=== PATIENT | female | born 2000 | race African-American/Black ===

== ENCOUNTER 2021-01-30 01:46 | Emergency (ER) | payer BC, OTHER ==
[2021-01-30 02:07] VITALS: TEMP 98.2; BMI 25.6
[2021-01-30] MEDS ORDERED: diphenhydrAMINE HCL 50 MG CAPSULE PO ONE (02:49)
[2021-01-30] MEDS ORDERED: LIDOCAINE 5% TOPICAL PATCH TP ONE (02:55)
[2021-01-30] MEDS ORDERED: IBUPROFEN 600 MG TABLET (FP) PO ONE ×2 (03:10→03:18)
[2021-01-30] MEDS ORDERED: diphenhydrAMINE HCL 25 MG CAPSULE (FP) PO ONE (03:17)
[2021-01-30] MEDS ORDERED: LIDOCAINE 5% TOPICAL PATCH ONE (03:18)
[2021-01-30 05:31] VITALS: BP 126/73; PULSE 86
[2021-01-30] MEDS ORDERED: LIDOCAINE PATCH REMOVAL MC SCH (22:00)
== END 2021-01-30 05:31 | disposition home or self-care (01) ==
LOC: JER 01:46
DX: R21 Rash and other nonspecific skin eruption (principal); R07.9 Chest pain, unspecified
CPT/HCPCS: 71046-TC-FY; 93005; 93010; 99284-25

== ENCOUNTER 2022-01-19 12:49 | Emergency (ER) | payer BC ==
[2022-01-19 13:05] VITALS: BP 99/68; PULSE 101; TEMP 98; BMI 24.7
[2022-01-19] MEDS ORDERED: IBUPROFEN 600 MG TABLET (FP) PO ONE ×2 (14:55→15:04)
== END 2022-01-19 16:03 | disposition home or self-care (01) ==
LOC: JERFT 12:49
DX: S92.354A Nondisplaced fracture of fifth metatarsal bone, right foot, initial encounter for closed fracture (principal)
CPT/HCPCS: 73630-TC-RT-FY; 99284-25

== ENCOUNTER 2023-12-26 19:06 | Emergency (ER) | payer BC ==
[2023-12-26] MEDS ORDERED: ONDANSETRON 4 MG/2 ML VIAL ONE (19:35)
[2023-12-26 19:37] VITALS: BP 105/78; PULSE 94; RESP 20; TEMP 97.8; BMI 24.7
[2023-12-26] MEDS: ONDANSETRON 4 MG/2 ML VIAL IVPUSH ONE (19:55)
[2023-12-26] MEDS ORDERED: FAMOTIDINE 20 MG/50 ML IVPB 20 MG/50 ML MG IVPB ONE (19:56)
[2023-12-26] MEDS: LACTATED RINGERS SOLUTION 1000 ML INFUS.BAG IV ONE (19:59)
[2023-12-26 20:05] LABS: BASO % 0.5 % (0-2.0); EOS % 1.5 % (0-4.5); HEMATOCRIT 43.2 % (32.4-45.2); HEMOGLOBIN 14.2 GM/dL (10.7-15.3); LYMPH % 22.6 % (8-40); MCH 27.3 pg (25.7-33.7); MCHC 32.9 g/dl (32.0-36.0); MEAN CELL VOLUME 82.8 fl (80-96); MEAN PLT VOLUME 8.1 fl (7.5-11.1); MONO % 6.8 % (3.8-10.2); NEUT % 68.6 % (42.8-82.8); PLATELET COUNT 263 10^3/uL (134-434); RBC 5.22 M/mm3 (3.60-5.2); RDW 16.3 % (11.6-15.6); WHITE BLOOD COUNT 5.2 K/mm3 (4.0-10.0)
[2023-12-26 20:24] LABS: POTASSIUM 4.3 mmol/L (3.5-5.1)
[2023-12-26 20:26] LABS: BLOOD UREA NITROGEN 6.6 mg/dL (7-18); CALCIUM 8.9 mg/dL (8.5-10.1)
[2023-12-26 20:27] LABS: ALBUMIN 4.3 g/dl (3.4-5.0)
[2023-12-26 20:30] LABS: CREATININE 0.8 mg/dL (0.55-1.3)
[2023-12-26 20:31] LABS: BILIRUBIN,TOTAL 0.4 mg/dL (0.2-1)
[2023-12-26 20:32] LABS: TOT PROT 8.2 g/dl (6.4-8.2)
[2023-12-26] MEDS: FAMOTIDINE 20 MG/50 ML IVPB 20 MG/50 ML MG IVPB ONE (21:13)
== END 2023-12-26 22:11 | disposition home or self-care (01) ==
LOC: JER 19:06
PROC: 3E033GC Introduction of Other Therapeutic Substance into Peripheral Vein, Percutaneous Approach (ICD-10-PCS; principal; 2023-12-26)
DX: F10.929 Alcohol use, unspecified with intoxication, unspecified (principal); Y90.7 Blood alcohol level of 200-239 mg/100 ml; R11.2 Nausea with vomiting, unspecified; R42 Dizziness and giddiness
CPT/HCPCS: 36415; 80053; 80307; 84703; 85025; 99284-25